=== PATIENT | female | born 1985 | race Two or more races ===

== ENCOUNTER 2019-04-13 21:56 | Emergency (ER) | payer SELFPAY ==
--- NOTE | 2019-04-13 22:07 | EDPHY ---
H & P Stated Complaint: N/V, cough Time Seen by Provider: 04/13/19 22:07 HPI/ROS: HPI CHIEF COMPLAINT: Cough, cough post tussis emesis. HISTORY OF PRESENT ILLNESS: 33-year-old female, otherwise healthy without any significant medical history presents emergency room with cough. States productive with clear white sputum. No blood. States she has had this for approximately a week. At time she coughs very vigorously and then vomits. She believes the cough and phlegm causes her to vomit. Denies any chest pain, denies fever, denies significant pain. She does complain of a cough with vomiting and diarrhea. Past Medical History: Denies significant medical history Past Surgical History: Denies significant surgical history Social History: Denies drugs alcohol tobacco. Vapes Family History: Noncontributory ROS REVIEW OF SYSTEMS: 10 Systems were reviewed and negative with the exception of the elements mentioned in the history of present illness. Exam Constitutional triage nursing summary reviewed, vital signs reviewed, awake/ alert. Eyes normal conjunctivae and sclera, EOMI, PERRLA. HENT normal inspection, atraumatic, moist mucus membranes, no epistaxis, neck supple/ no meningismus, no raccoon eyes. Respiratory bronchitic sounding cough on exam, otherwise clear to auscultation bilaterally, normal breath sounds, no respiratory distress, no wheezing. Cardiovascular rate normal, regular rhythm, no murmur, no edema, distal pulses normal. Gastrointestinal soft, non-tender, no rebound, no guarding, normal bowel sounds, no distension, no pulsatile mass. Genitourinary no CVA tenderness. Musculoskeletal no midline vertebral tenderness, full range of motion, no calf swelling, no tenderness of extremities, no meningismus, good pulses, neurovascularly intact. Skin pink, warm, & dry, no rash, skin atraumatic. Neurologic awake, alert and oriented x 3, AAOx3, moves all 4 extremities equally, motor intact, sensory intact, CN II-XII intact, normal cerebellar, normal vision, normal speech. Psychiatric normal mood/affect. Heme/Lymph/Immune no lymphadenopathy. Differential Diagnosis: Includes but is not limited to in a particular order bronchitis, bronchospasm, asthma, reactive airway disease, viral pneumonia, bacterial pneumonia I think pulmonary embolism is unlikely. Medical Decision Making: Plan for this patient DuoNeb breathing treatment, prednisone 60 mg, Zofran 4 mg, chest x-ray two view to rule out pneumonia and re -evaluate. Clinically on exam I do believe this patient has bronchitis, and is having post tussis emesis. Re-evaluation: Chest x-ray two view negative for acute cardiopulmonary disease no evidence of pneumonia. 12:22 a.m. patient re-evaluated this time resting comfortably with no acute distress. Good air movement bilaterally. Not wheezing. Feels much better after DuoNeb breathing treatment and prednisone. No vomiting. Patient would like to go home. Chest x-ray reviewed shows no pneumonia We discussed return precautions she understands return to the emergency room if worsening shortness of breath, vomiting, fever, cough. Will prescribe albuterol inhaler, prednisone. Mucinex. Return precautions discussed. Source: Patient - Personal History LMP (Females 10-55): Over 28 Days Ago Current Tetanus Diphtheria and Acellular Pertussis (TDAP): Yes - Medical/Surgical History Hx Asthma: No Hx Chronic Respiratory Disease: No Hx Diabetes: No Hx Cardiac Disease: No Hx Renal Disease: No Hx Cirrhosis: No Hx Alcoholism: No Hx HIV/AIDS: No Hx Splenectomy or Spleen Trauma: No - Social History Smoking Status: Never smoked Constitutional: Initial Vital Signs Temperature (C) 36.6 C 04/13/19 22:03 Heart Rate 93 04/13/19 22:03 Respiratory Rate 16 04/13/19 22:03 Blood Pressure 144/97 H 04/13/19 22:03 O2 Sat (%) 95 04/13/19 22:03 O2 Delivery Mode Room Air Allergies/Adverse Reactions: No Known Allergies Allergy (Unverified 04/13/19 22:15) Home Medications: Medication Instructions Recorded Albuterol [Proventil Inhaler HFA 1 - 2 puffs IH Q4H #1 mdi 04/13/19 (*)] predniSONE 60 mg PO DAILY #9 tab 04/13/19 guaiFENesin [Guaifenesin ER] 600 mg PO BID #14 tab.er.12h 04/14/19 Medical Decision Making - Diagnostics Imaging Results: Imaging Impressions Chest X-Ray 04/13/19 22:12 Impression: Normal chest x-ray. - Data Points Medications Given: Discontinued Medications Albuterol/Ipratropium (Duoneb) 3 ml IH EDNOW ONE Stop: 05/23/19 22:13 Last Admin: 04/13/19 22:23 Dose: 3 ml Ondansetron HCl (Zofran Odt) 4 mg PO EDNOW ONE Stop: 04/13/19 22:13 Last Admin: 04/13/19 22:23 Dose: 4 mg Prednisone (Prednisone) 60 mg PO EDNOW ONE Stop: 04/13/19 22:13 Last Admin: 04/13/19 22:23 Dose: 60 mg Departure - Departure Disposition: Home, Routine, Self-Care Clinical Impression: Bronchitis Condition: Good Instructions: Acute Bronchitis (ED) Additional Instructions: 1. Stay Well hydrated. 2. Albuterol inhaler 2 puffs every 4 hr as needed. 3. Steroids as prescribed. 4. Return to the emergency room if worsening symptoms. Prescriptions: Albuterol [Proventil Inhaler HFA (*)] 1 - 2 puffs IH Q4H #1 mdi guaiFENesin [Guaifenesin ER] 600 mg PO BID #14 tab.er.12h predniSONE 60 mg PO DAILY #9 tab
[2019-04-13] MEDS ORDERED: predniSONE 20 MG TAB PO ONE (22:12)
[2019-04-13] MEDS ORDERED: ONDANSETRON DISINTEGRATING 4 MG TAB PO ONE (22:12)
[2019-04-13] MEDS ORDERED: IPRATROPIUM/ALBUTEROL 3 ML DEYVIAL IH ONE (22:12)
[2019-04-14] MEDS ORDERED: ALBUTEROL INH PREPACK MDI TAKEHOME ONE (00:25)
[2019-04-14 00:41] VITALS: BP 132/73
== END 2019-04-14 00:40 | disposition home or self-care (01) ==
DX: J40 Bronchitis, not specified as acute or chronic (principal)
CPT/HCPCS: J7512

== ENCOUNTER 2019-05-05 18:50 | Emergency (ER) | payer SELFPAY | END 2019-05-05 20:51 | disposition home or self-care (01) ==